=== PATIENT | male | born 1985 | race Caucasian/White ===

== ENCOUNTER 2017-04-15 11:08 | Emergency (ER) | payer OTHER ==
[~2017-04-15] VITALS: Ht 175.3 cm; Wt 86.2 kg
[2017-04-15 13:37] VITALS: BP 134/96
== END 2017-04-15 13:37 | disposition home or self-care (01) ==
LOC: ED 11:08
DX: R10.13 Epigastric pain (principal); R11.2 Nausea with vomiting, unspecified; R19.7 Diarrhea, unspecified
CPT/HCPCS: J1885